=== PATIENT | female | born 2000 | race Caucasian/White ===

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

== ENCOUNTER 2022-02-17 16:49 | Inpatient (IN) | payer BC, OTHER ==
[2022-02-17] MEDS ORDERED: LIDOCAINE 0.5% (PF) 5 MG/ML (50 ML SDV) SQ PRN (17:36)
[2022-02-17] MEDS ORDERED: TERBUTALINE 1 MG/ML VIAL SQ PRN (17:36)
[2022-02-17] MEDS ORDERED: OXYTOCIN 30 UNITS/500 ML NS 30 UNIT in SALINE 1 500ML.BAG IV SCH (17:45)
[2022-02-17 18:01] LABS: Basophils % (A) 0 %; Eosinophils # (A) 0.1 k/uL (0-0.7); Eosinophils % (A) 1 %; HCT 40.9 % (34.0-46.0); HGB 14.6 gm/dL (11.4-16.0); Lymphocytes # (A) 1.4 k/uL (1.0-4.8); Lymphocytes % (A) 10 %; MCH 30.7 pg (25.0-35.0); MCHC 35.7 g/dL (31.0-37.0); MCV 85.9 fL (80.0-100.0); Mean Platelet Volume 10.1; Monocytes # (A) 0.7 k/uL (0-1.0); Monocytes % (A) 5 %; Neutrophils # (A) 11.1 k/uL (1.3-7.7); Neutrophils % (A) 83 %; Platelet Count 181 k/uL (150-450); RBC 4.76 m/uL (3.80-5.40); RDW 12.7 % (11.5-15.5); WBC 13.3 k/uL (3.8-10.6)
[2022-02-17] MEDS: LACTATED RINGERS 1,000 ML IV SCH (18:01)
[2022-02-18] MEDS: LACTATED RINGERS 1,000 ML IV SCH ×3 (04:37→18:00)
--- NOTE | 2022-02-18 09:16 | P.HPOB ---
History of Present Illness H&P Date: 02/18/22 Chief Complaint: Contractions Ms. Sewell is a 21 year old at 39 weeks, 0 days with EDC of 02/24/2022 who presents in with contractions and in spontaneous labor. She denies leakage of fluid and vaginal bleeding. She reports good movement. She desires as little intervention as possible during labor. Laboratory data: GBS negative, 1 hr GTT negative, rubella immune, RPR non reactive, HBsAg negative, blood type O positive, HIV non reactive Past Medical History Past Medical History: No Reported History Additional Past Medical History / Comment(s): "constant pain, with vomiting that had bleeding and then a nose bleed",bland diet with no improvement History of Any Multi-Drug Resistant Organisms: None Reported Additional Past Surgical History / Comment(s): plastic surgery to face repair of dog bite Past Anesthesia/Blood Transfusion Reactions: No Reported Reaction, Motion Sickness Past Psychological History: Anxiety, Depression Smoking Status: Former smoker Past Alcohol Use History: None Reported Past Drug Use History: Marijuana Additional Drug Use History / Comment(s): mom thinks "may use marijuana" - Past Family History Mother Family Medical History: No Reported History Father Family Medical History: CVA/TIA Additional Family Medical History / Comment(s): at age 31. Medications and Allergies Home Medications Medication Instructions Recorded Confirmed Type Vit No.179/Iron/Folic 1 tab PO DAILY 02/17/22 02/17/22 History [ Tablet] Allergies Allergy/AdvReac Type Severity Reaction Status Date / Time No Known Allergies Allergy Verified 04/15/19 18:32 Exam Vital Signs Temp Pulse Resp BP 02/17/22 17:36 97.1 F L 112 H 16 02/17/22 16:53 97.1 F L 114 H 14 135/75 Intake and Output 02/17/22 02/18/22 02/18/22 22:59 06:59 14:59 Other: # Voids 1 3 Weight 94.801 kg Focused exam is performed. Pleasant, health-appearing . - OBG Physical Exam Cervix: Cervical exam shows 7 centimerters dilated, 90% effaced, and -1 station. AROM is undertaken at this time for scant clear fluid. Results Result Diagrams: 02/17/22 17:53 Abnormal Lab Results - Last 24 Hours (Table) 02/17/22 Range/Units 17:53 WBC 13.3 H (3.8-10.6) k/uL Neutrophils # 11.1 H (1.3-7.7) k/uL Assessment and Plan Assessment: 21 year old at 39 weeks, 0 days with EDC of 02/24/2022 who presents in labor Plan: Patient desires intermittent monitoring. Declines analgesia. Would like to move about the room while laboring. EFM when able. NPO, saline lock in place (pt declines mIVF). Expectant management. Time with Patient: Greater than 30 (35 minutes)
[2022-02-18] MEDS ORDERED: ROPIVACAINE 100 MG, fentaNYL (PF). 200 MCG in SODIUM CHLORIDE 0.9% 76 ML EPIDURAL ONE (11:43)
--- NOTE | 2022-02-18 15:06 | P.PROBDLV ---
Vaginal Delivery Note - . Vaginal Delivery Note: DATE OF SERVICE: 02/18/2022 PROCEDURE: Spontaneous Vaginal Delivery ATTENDING: Dr. Sally Gonsalez MD ESTIMATED BLOOD LOSS: 200 mL FINDINGS: VFI, Apgars 9 PROCEDURE: Patient was a 21 y/o who presented to labor and delivery in labor. Artifical rupture of membranes was undertaken at 823 for clear fluid. Epidural anesthesia was obtained by Dr. [place]. Patient was complete and pushing. Light meconium was noted at this time. Head delivered followed by shoulders and body over intact perineum at 1446. placed on maternal abdomen and bulb suctioned. Cord was clamped and cut after a 60 second delay. Placenta delivered whole with gentle cord traction. Oxytocin was started to facilitate uterine tone. Uterine fundus firm and bleeding minimal upon fundal massage. Perineal inspection revealed periurethral abrasions that did not require repair and an in tact perineum. Patient stable .
[2022-02-18] MEDS ORDERED: ACETAMINOPHEN TAB 325 MG TAB PO PRN (15:07)
[2022-02-18] MEDS ORDERED: LANOLIN CREAM 5 GM TUBE TOPICAL PRN (15:07)
[2022-02-18] MEDS ORDERED: HYDROcodone/APAP 5-325MG 1 EACH TAB PO PRN (15:07)
[2022-02-18] MEDS ORDERED: HYDROCORTISONE 2.5% RECTAL CREAM 30 GM TUBE RECTAL PRN (15:07)
[2022-02-18] MEDS ORDERED: diphenhydrAMINE 50 MG CAP PO PRN (15:07)
[2022-02-18] MEDS ORDERED: BENZOCAINE/MENTHOL SPRAY 1 GM/SPRAY AEROSOL TOPICAL PRN (15:07)
[2022-02-18] MEDS ORDERED: diphenhydrAMINE 25 MG CAP PO PRN (15:07)
[2022-02-18] MEDS ORDERED: SIMETHICONE 80 MG CHEWABLE PO PRN (15:07)
[2022-02-18] MEDS ORDERED: ZOLPIDEM 5 MG TAB PO PRN (15:07)
[2022-02-18] MEDS ORDERED: diphenhydrAMINE 50 MG/ML 1 ML VIAL IVP PRN ×2 (15:07)
[2022-02-18] MEDS: IBUPROFEN 600 MG TAB PO PRN (18:22)
[2022-02-18] MEDS ORDERED: METHYLERGONOVINE 0.2 MG/ML 1 ML AMP IM ONE (20:06)
[2022-02-18] MEDS: SENNOSIDES-DOCUSATE SODIUM 1 EACH TAB PO SCH (20:08)
[2022-02-18 20:25] LABS: HCT 34.3 % (34.0-46.0); HGB 12.4 gm/dL (11.4-16.0); MCH 31.2 pg (25.0-35.0); MCHC 36.1 g/dL (31.0-37.0); MCV 86.4 fL (80.0-100.0); Mean Platelet Volume 9.6; Platelet Count 155 k/uL (150-450); RBC 3.96 m/uL (3.80-5.40); RDW 12.9 % (11.5-15.5); WBC 13.6 k/uL (3.8-10.6)
--- NOTE | 2022-02-18 20:53 | P.PN ---
Progress Note - Text Progress Note Date: 02/18/22 S: Called to assess the patient at the bedside for delayed hemorrhage. Patient c/o ringing in the ears, dizziness, and perioral tingling when walking to the bathroom. O: QBL during delivery was 279 mL. Patient passed a few soft-ball sized clots measuring 470 mL. Vitals signs stable. Patient was given 0.2 of IM methergine. Bimanual exam performed and 605 mL of blood clots evacuated from the lower uterine segment. Lower uterine segment appropriately firm after evacuation of clots. Stat CBC showed Hgb down to 12.4 from 13.3. A/P: 21 y/o now PPD#0 s/p at 39w0d with delayed hemorrhage. Continue to monitor bleeding and vital signs closely. Repeat CBC tomorrow morning. Total QBL during delivery, recovery, and hemorrhage equals 1354 mL.
[2022-02-19] MEDS: IBUPROFEN 600 MG TAB PO PRN ×2 (03:25→15:43)
[2022-02-19 06:46] LABS: Basophils % (A) 0 %; Eosinophils # (A) 0.1 k/uL (0-0.7); Eosinophils % (A) 1 %; HCT 29.8 % (34.0-46.0); HGB 10.9 gm/dL (11.4-16.0); Lymphocytes # (A) 0.6 k/uL (1.0-4.8); Lymphocytes % (A) 6 %; MCH 32.2 pg (25.0-35.0); MCHC 36.6 g/dL (31.0-37.0); MCV 87.9 fL (80.0-100.0); Mean Platelet Volume 9.6; Monocytes # (A) 0.6 k/uL (0-1.0); Monocytes % (A) 6 %; Neutrophils # (A) 8.8 k/uL (1.3-7.7); Neutrophils % (A) 86 %; Platelet Count 138 k/uL (150-450); RBC 3.39 m/uL (3.80-5.40); RDW 12.9 % (11.5-15.5); WBC 10.1 k/uL (3.8-10.6)
[2022-02-19 07:55] VITALS: RESP 16
[2022-02-19] MEDS: SENNOSIDES-DOCUSATE SODIUM 1 EACH TAB PO SCH (08:00)
--- NOTE | 2022-02-19 11:48 | P.PNOBGVD ---
Subjective - Subjective Principal diagnosis: Spontaenous Vaginal Delivery Interval history: The patient is doing well this morning and had no acute events overnight. She has no complaints this morning. She reports minimal lochia (lighted than a period), passing flatus, voiding without difficulty, ambulating, and eating/drinking without nausea or vomiting. She is her without difficulty. She denies chest pain, shortness of breathing, fevers, or chills overnight. She denies pain or swelling in the legs. Patient reports: Reports appetite normal, Reports voiding normally, Reports pain well controlled, Reports ambulating normally : doing well, nursing well Objective - Latest Vital Signs Latest vital signs: Vital Signs Temp Pulse Resp BP Pulse Ox 02/19/22 07:54 98.1 F 86 16 98/59 02/19/22 03:47 98 F 82 18 138/70 100 02/18/22 23:23 98.2 F 90 18 120/65 98 02/18/22 21:30 85 117/68 02/18/22 21:10 105 H 18 111/66 98 02/18/22 20:42 92 18 118/61 98 02/18/22 20:28 105 H 115/74 98 02/18/22 20:23 128 H 123/62 02/18/22 20:00 98.7 F 90 18 113/63 97 02/18/22 17:06 97.5 F L 106 H 16 121/64 02/18/22 16:36 102 H 16 112/59 02/18/22 16:06 97 16 131/67 02/18/22 15:51 92 16 135/67 02/18/22 15:36 93 16 118/63 02/18/22 15:21 95 16 120/58 02/18/22 15:06 93 16 130/64 Intake and Output 02/18/22 02/19/22 02/19/22 22:59 06:59 14:59 Intake Total 167 Output Total 1341 Balance -1174 Intake: Intake, IV Titration 167 Amount Oxytocin 30 Units/500 ml 167 Ns 30 unit In Saline 1 500ml.bag @ Per Protocol IV .Q0M [facility] Rx#:[id number] Output: Output, Quantitative 1341 Blood Loss - Exam Extremities: Present: normal Abdomen: Present: normal appearance, soft Uterus: Present: normal, firm - Labs Labs: Abnormal Lab Results - Last 24 Hours (Table) 02/18/22 02/19/22 Range/Units 20:15 06:32 WBC 13.6 H (3.8-10.6) k/uL RBC 3.39 L (3.80-5.40) m/uL Hgb 10.9 L (11.4-16.0) gm/dL Hct 29.8 L (34.0-46.0) % Plt Count 138 L (150-450) k/uL Neutrophils # 8.8 H (1.3-7.7) k/uL Lymphocytes # 0.6 L (1.0-4.8) k/uL Assessment and Plan Assessment: 21 y/o now PPD#1 s/p of viable female infant at 39w1d, s/p delayed hemorrhage ~4 hours after delivery Plan: - Vitals stable overnight and this morning, morning Hgb 10.1. Patient clinically improved, lightheadedness has resolved and bleeding is now light. - Patient meeting all milestones - Reviewed recommendation for 6 weeks of pelvic rest. Discussed that if the patient becomes sexually active she should use condoms to prevent . Discussed the risks of short interval including delivery and low weight. - Will send home with ibuprofen and tylneol for pain control. Breast script signed and send to pharmacy. Dispo: Discharge home after 24 hours this afternoon.
--- NOTE | 2022-02-19 12:02 | P.DS ---
Providers Date of admission: 02/17/22 17:35 Expected date of discharge: 02/19/22 Attending physician: Norman Sprague Primary care physician: Stated None Hospital Course: Patient had spontaneous vaginal delivery after progressing well through the first and second stage of labor. Placenta delivered without difficulty. Patient had a delayed hemorrhage about 4 hours after delivery. 0.2 mg of IV methergine was given and ~600 cc of clots were expressed from the lower uterine segment. Uterine tone was firm after this evacuation and the bleeding became light. Hgb on the day of discharge was 10.1 down from 14.3. Vitals signs stable, bleeding light at the time of discharge. Patient met all milestones appropriately. Assessment: 21 y/o now PPD #1 s/p complicated by hemorrhage. Patient Condition at Discharge: Good Plan - Discharge Summary Discharge Rx Participant: No New Discharge Prescriptions: New Ibuprofen [Motrin] 600 mg PO Q6HR PRN #30 tab PRN Reason: Mild Pain (Scale 1 To 3) Acetaminophen Tab [Tylenol] 650 mg PO Q4HR PRN #30 tab PRN Reason: Mild Pain (Scale 1 To 3) Discontinued Vit No.179/Iron/Folic [ Tablet] 1 tab PO DAILY Discharge Medication List Acetaminophen Tab [Tylenol] 650 mg PO Q4HR PRN #30 tab 02/19/22 [Rx] Ibuprofen [Motrin] 600 mg PO Q6HR PRN #30 tab 02/19/22 [Rx] Follow up Appointment(s)/Referral(s): Norman Sprague MD [STAFF PHYSICIAN] - 6 Weeks Patient Instructions/Handouts: Normal Growth and Development of Newborns (DC), Vaginal Delivery (DC), Bleeding (DC), Hemorrhage (DC), Your Baby (DC), Expression, Collection and Storage of Breast Milk (DC), How to Hold and Breastfeed Your Baby (DC), and Nipple Soreness (DC), and Plugged Ducts (DC), How to Increase Your Milk Supply (DC), How to Tell if Your Baby is Getting Enough Breast Milk (DC), Breast Care for the Mother (DC), Depression (DC) Activity/Diet/Wound Care/Special Instructions: Activity as tolerated, pelvic rest x6 weeks. Discharge Disposition: HOME SELF-CARE
[2022-02-19 15:41] VITALS: BP 109/70; PULSE 108; TEMP 98.9
== END 2022-02-19 16:45 | disposition home or self-care (01) | DRG 806 ==
LOC: FBPOP 16:49 → 4FBP 17:35
PROVIDERS: ADMIT Obstetrics & Gynecology; ATTEND Obstetrics & Gynecology
PROC: 10907ZC Drainage of Amniotic Fluid, Therapeutic from Products of Conception, Via Natural or Artificial Opening (ICD-10-PCS; principal; 2022-02-18)
PROC: 10E0XZZ Delivery of Products of Conception, External Approach (ICD-10-PCS; principal; 2022-02-18)
PROC: 0UC97ZZ Extirpation of Matter from Uterus, Via Natural or Artificial Opening (ICD-10-PCS; principal; 2022-02-18)
DX: O77.0 Labor and delivery complicated by meconium in amniotic fluid (principal); O72.2 Delayed and secondary postpartum hemorrhage; Z37.0 Single live birth; O71.82 Other specified trauma to perineum and vulva; Z3A.39 39 weeks gestation of pregnancy; Z87.891 Personal history of nicotine dependence; Z28.310 Unvaccinated for COVID-19; Z28.21 Immunization not carried out because of patient refusal; Z86.59 Personal history of other mental and behavioral disorders
CPT/HCPCS: 59025; 85025; 85027; 86850; 86900; 86901; 99213